=== PATIENT | male | born 1965 | race Caucasian/White ===

== ENCOUNTER 2017-07-19 09:13 | Inpatient (IN) | payer OTHER ==
[2017-07-19] MEDS ORDERED: SODIUM CHLORIDE 0.9% 1,000 ML IV STA (09:18)
--- NOTE | 2017-07-19 09:23 | ED ---
SOB HPI - General Stated Complaint: SOB Time Seen by Provider: 07/19/17 09:13 Source: patient, EMS, RN notes reviewed Mode of arrival: EMS - History of Present Illness Initial Comments: This is a 52-year-old male with a history of recently diagnosed colon cancer with metastases to the liver lungs apparently brain who came in by EMS today because of shortness of breath. He apparently had a bowel obstruction [place] was diagnosed with colon cancer in November of this year but per archival records clerk report did not do anything about it until recently. He was recently hospitalized at [facility] and was discharged 4 days ago. He complains of edema up to his lower abdomen. He has weeping to his legs shortness of breath decreased oral intake. He is reported to be severely jaundiced. MD Complaint: shortness of breath - Related Data Home Medications Medication Instructions Recorded Confirmed Dronabinol [Marinol] 2.5 mg PO BID 07/19/17 07/19/17 HYDROcodone/APAP 10-325MG [[place] 1 tab PO Q6H PRN 07/19/17 07/19/17 10-325] Levothyroxine Sodium [Synthroid] 175 mcg PO DAILY 07/19/17 07/19/17 Multivitamins, Thera [Multivitamin 1 tab PO DAILY 07/19/17 07/19/17 (formulary)] Phytonadione [Vitamin K] 5 mg PO BID 07/19/17 07/19/17 fentaNYL 25MCG/HR PATCH [Durages[place] 1 patch TRANSDERM Q72H 07/19/17 07/19/17 25MCG/HR] Allergies Allergy/AdvReac Type Severity Reaction Status Date / Time tigecycline Allergy Unknown Verified 07/19/17 09:52 Review of Systems ROS Statement: Those systems with pertinent positive or pertinent negative responses have been documented in the HPI. ROS Other: All systems not noted in ROS Statement are negative. General Exam - General Exam Comments Initial Comments: This is a well-developed asthenic appearing male who is jaundiced Limitations: physical limitation General appearance: alert, lethargic Head exam: Present: atraumatic, normocephalic, normal inspection Eye exam: Present: PERRL, EOMI, scleral icterus ENT exam: Present: mucous membranes dry Neck exam: Present: normal inspection. Absent: tenderness, meningismus, lymphadenopathy Respiratory exam: Present: decreased breath sounds Cardiovascular Exam: Present: regular rate, normal rhythm, normal heart sounds. Absent: systolic murmur, diastolic murmur, rubs, gallop, clicks GI/Abdominal exam: Present: other (Distended abdomen with a rate lower quadrant colonoscopy with protrusion of the ostomy into the bag.) Rectal exam: Present: deferred exam: Present: other Extremities exam: Present: pedal edema, other (Weeping of the lower extremities bilaterally.) Back exam: Present: full ROM. Absent: tenderness, CVA tenderness (R), CVA tenderness (L) Neurological exam: Present: alert, oriented X3, CN II-XII intact Psychiatric exam: Present: normal affect, normal mood Skin exam: Present: warm, other (Jaundiced) Course Vital Signs 07/19/17 07/19/17 07/19/17 09:17 10:18 11:00 Temperature 97 F L Pulse Rate 99 102 H 99 Respiratory 24 18 24 Rate Blood Pressure 115/58 112/58 109/59 O2 Sat by Pulse 99 100 100 Oximetry 07/19/17 07/19/17 12:00 13:00 Temperature Pulse Rate 95 93 Respiratory 20 18 Rate Blood Pressure 110/58 108/56 O2 Sat by Pulse 100 99 Oximetry Medical Decision Making - Medical Decision Making The patient will be admitted for evaluation by oncology did discuss case with Dr. Salgado. Additionally findings after my discussed with Dr. Salgado indicate possible pneumonia facial be treated for the same. - Lab Data Result diagrams: 07/19/17 09:36 07/19/17 09:36 Lab Results 07/19/17 07/19/17 07/19/17 Range/Units 09:36 09:36 09:36 WBC 14.7 H (3.8-10.6) k/uL RBC 3.03 L (4.30-5.90) m/uL Hgb 10.5 L (13.0-17.5) gm/dL Hct 33.7 L (39.0-53.0) % MCV 111.2 H (80.0-100.0) fL MCH 34.7 (25.0-35.0) pg MCHC 31.2 (31.0-37.0) g/dL RDW 22.5 H (11.5-15.5) % Plt Count 235 (150-450) k/uL Neutrophils % 89 % Lymphocytes % 4 % Monocytes % 4 % Eosinophils % 1 % Basophils % 1 % Neutrophils # 13.0 H (1.3-7.7) k/uL Lymphocytes # 0.5 L (1.0-4.8) k/uL Monocytes # 0.6 (0-1.0) k/uL Eosinophils # 0.1 (0-0.7) k/uL Basophils # 0.1 (0-0.2) k/uL Manual Slide Review Performed Toxic Granulation Present Hypochromasia Moderate Poikilocytosis (manual Present Anisocytosis Moderate Macrocytosis Marked PT (9.0-12.0) sec INR (<1.2) APTT (22.0-30.0) sec Sodium 141 (137-145) mmol/L Potassium 4.0 (3.5-5.1) mmol/L Chloride 113 H (98-107) mmol/L Carbon Dioxide 14 L (22-30) mmol/L Anion Gap 14 mmol/L BUN 24 H (9-20) mg/dL Creatinine 1.32 H (0.66-1.25) mg/dL Est GFR (MDRD) Af Amer >60 (>60 ml/min/1.73 sqM) Est GFR (MDRD) Non-Af 57 (>60 ml/min/1.73 sqM) Glucose 92 (74-99) mg/dL Calcium 8.5 (8.4-10.2) mg/dL Magnesium 2.2 (1.6-2.3) mg/dL Total Bilirubin 21.6 H* (0.2-1.3) mg/dL AST 470 H (17-59) U/L ALT 100 H (21-72) U/L Alkaline Phosphatase 597 H (38-126) U/L Total Creatine Kinase 64 (55-170) U/L CK-MB (CK-2) 0.7 (0.0-2.4) ng/mL CK-MB (CK-2) Rel Index 1.1 Troponin I <0.012 (0.000-0.034) ng/mL NT-Pro-B Natriuret Pep pg/mL Total Protein 6.5 (6.3-8.2) g/dL Albumin 2.8 L (3.5-5.0) g/dL 07/19/17 07/19/17 Range/Units 09:36 09:36 WBC (3.8-10.6) k/uL RBC (4.30-5.90) m/uL Hgb (13.0-17.5) gm/dL Hct (39.0-53.0) % MCV (80.0-100.0) fL MCH (25.0-35.0) pg MCHC (31.0-37.0) g/dL RDW (11.5-15.5) % Plt Count (150-450) k/uL Neutrophils % % Lymphocytes % % Monocytes % % Eosinophils % % Basophils % % Neutrophils # (1.3-7.7) k/uL Lymphocytes # (1.0-4.8) k/uL Monocytes # (0-1.0) k/uL Eosinophils # (0-0.7) k/uL Basophils # (0-0.2) k/uL Manual Slide Review Toxic Granulation Hypochromasia Poikilocytosis (manual Anisocytosis Macrocytosis PT 21.0 H (9.0-12.0) sec INR 2.2 H (<1.2) APTT 65.3 H (22.0-30.0) sec Sodium (137-145) mmol/L Potassium (3.5-5.1) mmol/L Chloride (98-107) mmol/L Carbon Dioxide (22-30) mmol/L Anion Gap mmol/L BUN (9-20) mg/dL Creatinine (0.66-1.25) mg/dL Est GFR (MDRD) Af Amer (>60 ml/min/1.73 sqM) Est GFR (MDRD) Non-Af (>60 ml/min/1.73 sqM) Glucose (74-99) mg/dL Calcium (8.4-10.2) mg/dL Magnesium (1.6-2.3) mg/dL Total Bilirubin (0.2-1.3) mg/dL AST (17-59) U/L ALT (21-72) U/L Alkaline Phosphatase (38-126) U/L Total Creatine Kinase (55-170) U/L CK-MB (CK-2) (0.0-2.4) ng/mL CK-MB (CK-2) Rel Index Troponin I (0.000-0.034) ng/mL NT-Pro-B Natriuret Pep 742 pg/mL Total Protein (6.3-8.2) g/dL Albumin (3.5-5.0) g/dL - EKG Data -: EKG Interpreted by Me (Sinus rhythm of 96 SD 160 QRS 90 QT since QTC of 388/ 490) EKG shows normal: sinus rhythm (Sinus rhythm rate 96 SD interval 160 QRS 90 QT since QTC of 388/490 right axis deviation pulmonary disease pattern prolonged QT nonspecific T-wave configuration) - Radiology Data Radiology results: report reviewed (Evidence a small right pleural effusion with right basilar airspace disease pneumonia is possible.), image reviewed Disposition Clinical Impression: Metastatic colon cancer to liver, Pneumonia Disposition: ADMITTED IP TO THIS [facility] Condition: Serious Referrals: None,Stated [REFERRING] - 1-2 days
[2017-07-19 10:02] LABS: Anisocytosis Moderate; Basophils # (A) 0.1 k/uL (0-0.2); Basophils % (A) 1 %; CH 33.8; CHCM 30.9; Eosinophils # (A) 0.1 k/uL (0-0.7); Eosinophils % (A) 1 %; HCT 33.7 % (39.0-53.0); HDW 3.04; HGB 10.5 gm/dL (13.0-17.5); Hypochromasia Moderate; Luc # (Auto) 0.34; Luc % (Auto) 2; Lymphocytes # (A) 0.5 k/uL (1.0-4.8); Lymphocytes % (A) 4 %; MCH 34.7 pg (25.0-35.0); MCHC 31.2 g/dL (31.0-37.0); MCV 111.2 fL (80.0-100.0); Macrocytosis Marked; Mean Platelet Volume 7.7; Monocytes # (A) 0.6 k/uL (0-1.0); Monocytes % (A) 4 %; Neutrophils % (A) 89 %; RBC 3.03 m/uL (4.30-5.90); RDW 22.5 % (11.5-15.5); WBC 14.7 k/uL (3.8-10.6); WBC (Perox) 15.34
[2017-07-19 10:08] LABS: ALT 100 U/L (21-72); AST 470 U/L (17-59); Alkaline Phosphatase 597 U/L (38-126); Anion Gap 14 mmol/L; Blood Urea Nitrogen 24 mg/dL (9-20); Calcium 8.5 mg/dL (8.4-10.2); Carbon Dioxide 14 mmol/L (22-30); Chloride 113 mmol/L (98-107); Glucose 92 mg/dL (74-99); Magnesium 2.2 mg/dL (1.6-2.3); Non-African American GFR(MDRD) 57 (>60 ml/min/1.73 sqM); Sodium 141 mmol/L (137-145); Total Protein 6.5 g/dL (6.3-8.2)
[2017-07-19] MEDS ORDERED: HYDROmorphone 1 MG/ML 1 ML SYRINGE IVP STA (10:08)
[2017-07-19 10:10] LABS: Total Bilirubin 21.6 mg/dL (0.2-1.3)
--- NOTE | 2017-07-19 10:19 | XR ---
EXAMINATION TYPE: XR chest 2V DATE OF EXAM: 07/19/2017 COMPARISON: NONE HISTORY: Shortness of breath with history of colon cancer, liver cancer and jaundice. TECHNIQUE: Frontal and lateral views of the chest are obtained. FINDINGS: Left-sided Mediport is seen with its distal tip in the superior vena cava/regional junctio n. Mild cardiomegaly is demonstrated. There are is a small to moderate right pleural effusion with as sociated right basilar airspace disease. No left pleural effusion is noted. Retrocardiac density may relate to atelectasis or a small hernia. IMPRESSION: 1. Small moderate right layering pleural effusion with right basilar airspace disease. This may repre sent atelectasis and/or pneumonia in the appropriate clinical setting. 2. Retrocardiac density that may relate to atelectasis. No left pleural effusion.
[2017-07-19 10:39] LABS: Creatine Kinase 64 U/L (55-170)
[2017-07-19 10:46] LABS: INR 2.2 (<1.2)
[2017-07-19 10:50] LABS: Creatine Kinase MB 0.7 ng/mL (0.0-2.4); Troponin I <0.012 ng/mL (0.000-0.034)
[2017-07-19 10:55] LABS: Manual Review Performed; Toxic Granulation Present
[2017-07-19 11:05] LABS: Partial Thromboplastin Time 65.3 sec (22.0-30.0)
[2017-07-19] MEDS ORDERED: PIPERACILLIN-TAZOBACTAM 3.375 GM in DEXTROSE/WATER 1 50ML.BAG IVPB STA (13:30)
[2017-07-19] MEDS ORDERED: ONDANSETRON 4 MG/2 ML VIAL IVP PRN (13:32)
[2017-07-19] MEDS ORDERED: NALOXONE 0.4 MG/ML 1 ML VIAL IV PRN (13:32)
[2017-07-19] MEDS ORDERED: IPRATROPIUM-ALBUTEROL 3 ML NEB INHALATION STA (13:37)
[2017-07-19] MEDS: SODIUM CHLORIDE 0.9% 1,000 ML IV SCH ×2 (13:44→21:09)
[2017-07-19 15:35] VITALS: BMI 17.8
[2017-07-19] MEDS ORDERED: IPRATROPIUM-ALBUTEROL 3 ML NEB INHALATION SCH (16:00)
[2017-07-19] MEDS ORDERED: IPRATROPIUM-ALBUTEROL 3 ML NEB INHALATION PRN (16:35)
[2017-07-19] MEDS: DRONABINOL 2.5 MG CAP PO SCH (17:50)
[2017-07-19] MEDS: HYDROmorphone 1 MG/ML 1 ML SYRINGE IV PRN ×2 (18:05→21:33)
[2017-07-19] MEDS: PHYTONADIONE ORAL 5 MG/5 ML ORAL.SYRG PO SCH (21:09)
[2017-07-19] MEDS: HYDROCORTISONE 1% CREAM 454 GM JAR TOPICAL SCH (21:35)
[2017-07-19 23:46] VITALS: RESP 16
[2017-07-20] MEDS: PIPERACILLIN-TAZOBACTAM 3.375 GM in DEXTROSE/WATER 1 50ML.BAG IVPB SCH ×3 (00:24→17:27)
[2017-07-20] MEDS: SODIUM CHLORIDE 0.9% 1,000 ML IV SCH ×3 (05:17→22:40)
[2017-07-20] MEDS: HYDROmorphone 1 MG/ML 1 ML SYRINGE IV PRN ×4 (05:18→20:04)
[2017-07-20 05:54] LABS: Anisocytosis Moderate; Basophils # (A) 0.1 k/uL (0-0.2); Basophils % (A) 0 %; CH 32.6; CHCM 30.5; Eosinophils # (A) 0.2 k/uL (0-0.7); Eosinophils % (A) 1 %; HCT 33.2 % (39.0-53.0); HDW 2.94; HGB 10.5 gm/dL (13.0-17.5); Hypochromasia Moderate; Luc # (Auto) 0.44; Luc % (Auto) 3; Lymphocytes # (A) 0.7 k/uL (1.0-4.8); Lymphocytes % (A) 4 %; MCH 34.3 pg (25.0-35.0); MCHC 31.6 g/dL (31.0-37.0); MCV 108.6 fL (80.0-100.0); Macrocytosis Marked; Mean Platelet Volume 7.2; Monocytes # (A) 0.6 k/uL (0-1.0); Monocytes % (A) 4 %; Neutrophils # (A) 13.2 k/uL (1.3-7.7); Neutrophils % (A) 87 %; RBC 3.05 m/uL (4.30-5.90); WBC 15.2 k/uL (3.8-10.6)
[2017-07-20 06:04] LABS: Calcium 8.4 mg/dL (8.4-10.2); Partial Thromboplastin Time 41.9 sec (22.0-30.0); Potassium 4.2 mmol/L (3.5-5.1)
[2017-07-20 06:08] LABS: Total Bilirubin 21.4 mg/dL (0.2-1.3)
[2017-07-20 06:11] LABS: INR 2.5 (<1.2); Prothrombin Time 23.7 sec (9.0-12.0)
[2017-07-20] MEDS: LEVOTHYROXINE 100 MCG TAB PO SCH (06:11)
[2017-07-20] MEDS: LEVOTHYROXINE 75 MCG TAB PO SCH (06:12)
[2017-07-20] MEDS ORDERED: PANTOPRAZOLE 40 MG/10 ML VIAL IV SCH (09:00)
[2017-07-20] MEDS ORDERED: diphenhydrAMINE 50 MG/ML 1 ML VIAL IVP PRN (09:17)
[2017-07-20] MEDS: DRONABINOL 2.5 MG CAP PO SCH ×2 (09:27→17:27)
[2017-07-20] MEDS: PHYTONADIONE ORAL 5 MG/5 ML ORAL.SYRG PO SCH ×2 (09:29→22:44)
[2017-07-20] MEDS: HYDROCORTISONE 1% CREAM 454 GM JAR TOPICAL SCH ×2 (09:30→20:06)
--- NOTE | 2017-07-20 13:00 | HP ---
CHIEF COMPLAINT: 52-year-old white male with colon cancer, metastases to the liver and lungs with significant jaundice, malnutrition, abdominal bloating, worsening over the past few days at which time he was sent home from [facility] four days ago with worsening pain, increased in legs, shortness of breath, leg swelling, ( ) and worsening jaundice. No chemo would be given down at [place] until the jaundice went away, which it never did. Home medicines: 1. Fentanyl 25 mcg patch. 2. Synthroid 175. 3. Marinol 2.5 b.i.d. 4. [place] 10 q6h. ALLERGIES: TIGECYCLINE. REVIEW OF SYSTEMS: 14 point review of systems negative except for as mentioned in HPI. PHYSICAL EXAMINATION: Well developed, aesthetic appearing male with jaundice. Cardiovascular: S1, S2. Lungs clear. GI: Distended abdomen. He has an ostomy. : No suprapubic tenderness. EXTREMITIES: No cyanosis or clubbing. He has 2 to 3+ pedal edema bilaterally. BACK: He has lordotic kyphotic spine. CVA tenderness right and left. Abdomen is distended due to obesity and positive fluid wave. Gravid abdomen like six months. NEUROLOGICAL : Alert and oriented times three. Cranial nerves 2 thru 12 intact. Psych: Slow affect and flat mood . SKIN: Jaundice. LABORATORY DATA: Reviewed. ASSESSMENT AND PLAN: 1. End stage colon cancer, liver metastases. 2. Severe protein calorie malnutrition. 3. TPN will be started. 4. Possible pneumonia, on broad spectrum antibiotics. 5. Pulmonary consult is pending. 6. Right pleural effusion. 7. Right air space disease for pneumonia. 8. Continue broad spectrum antibiotics. 9. Oncology consult as well as pulmonology. MTDD
[2017-07-20] MEDS: MULTIVITAMINS, THERA 1 EACH TAB PO SCH (13:33)
[2017-07-20] MEDS ORDERED: ZOLPIDEM 5 MG TAB PO PRN (14:43)
[2017-07-20] MEDS: ONDANSETRON 4 MG/2 ML VIAL IVP PRN ×2 (15:59→22:53)
--- NOTE | 2017-07-20 18:35 | P.CONS ---
History of Present Illness - Reason for Consult Consult date: 07/20/17 metastatic colon cancer Requesting physician: Richard Oliva - Chief Complaint SOB - History of Present Illness Mr. Guo is a very pleasant 52 year old male who was diagnosed with metastatic colon cancer in Oct 2016. He thinks he had several surgeries and then was in rehab, he thinks he was in the hospital for a total of 6 weeks. He does not remember meeting an Oncologist, he does not remember discussing any treatment, he knows he has not had any treatment. He recalls being told that there was "no hope" and that he should just stay comfortable until he dies. He denies having home care of hospice services at home. He has c/o puritis, orthopnea, indigestion, bitter taste with belching, mild nausea. Denies fevers, sweats, vomiting, his abd has been distended, maybe a little more , his ostomy has been herniated, denies any acute changes in output, no blood from the ostomy, no other bleeding to report, he feels the swelling in his legs is a little better, he is denying pain. Review of Systems Pt gave history to the best of his ability, he had documents from [facility], he was able to communicate how he felt physically clearly. 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 History of Any Multi-Drug Resistant Organisms: None Reported Past Surgical History: Bowel Resection Additional Past Surgical History / Comment(s): Bowel resection with colostomy, mediport. Past Anesthesia/Blood Transfusion Reactions: No Reported Reaction Past Psychological History: Depression Additional Psychological History / Comment(s): Pt has a brother who resides with him. He uses a walker to ambulate. He was discharged from [facility] 4 days ago and was to have home care established. Smoking Status: Never smoker Past Alcohol Use History: None Reported Past Drug Use History: Marijuana - Past Family History Father Family Medical History: CVA/TIA Additional Family Medical History / Comment(s): Father is living and has had a "mild stroke." Mother Family Medical History: Cancer Additional Family Medical History / Comment(s): Mother has had breast cancer. Medications and Allergies Home Medications Medication Instructions Recorded Confirmed Type Dronabinol [Marinol] 2.5 mg PO BID 07/19/17 07/19/17 History HYDROcodone/APAP 10-325MG [[place] 1 tab PO Q6H PRN 07/19/17 07/19/17 History 10-325] Levothyroxine Sodium [Synthroid] 175 mcg PO DAILY 07/19/17 07/19/17 History Multivitamins, Thera [Multivitamin 1 tab PO DAILY 07/19/17 07/19/17 History (formulary)] Phytonadione [Vitamin K] 5 mg PO BID 07/19/17 07/19/17 History fentaNYL 25MCG/HR PATCH [[place] 1 patch TRANSDERM Q72H 07/19/17 07/19/17 History 25MCG/HR] Allergies Allergy/AdvReac Type Severity Reaction Status Date / Time tigecycline Allergy Unknown Verified 07/19/17 09:52 Physical Exam Vitals: Vital Signs Temp Pulse Resp BP BP Pulse Ox 07/20/17 14:40 97.7 F 102 H 16 99/52 94 L 07/20/17 07:00 97.4 F L 103 H 16 98/49 98 07/20/17 00:00 89 16 07/19/17 23:00 97.3 F L 102 H 16 94/60 96 07/19/17 21:29 96 18 101/52 98 07/19/17 19:35 97 Intake and Output 07/20/17 07/20/17 07/20/17 06:59 14:59 22:59 Intake Total 200 Output Total 250 250 Balance -50 -250 Intake: Oral 200 Output: Urine 250 Stool 250 Other: Voiding Method Urinal Urinal Urinal # Voids 1 Weight 58.06 kg Patient Weight 07/21/17 06:59 Weight 58.06 kg - Constitutional General appearance: cooperative, thin - EENT Eyes: scleral icterus ENT: normal oropharynx - Neck Neck: no lymphadenopathy - Respiratory Respiratory: bilateral: diminished, other (shallow respirations secondary to abd distension) - Cardiovascular Rhythm: regular Heart sounds: normal: S1, S2 Abnormal Heart Sounds: no systolic murmur, no diastolic murmur, no rub, no S3 Gallop, no S4 Gallop, no click, no other leg Peripheral Edema: bilateral: 3+, Pitting - Gastrointestinal abd is grossly distended, venous congestion/prominence noted. RLQ ostomy is herniated but stoma is pink, pale brown semi solid stool noted, no blood. Hard abd, hepatomegaly, hard to find border as ostomy in RLQ, liver is hard and nodular to palpation. General gastrointestinal: distended, normal bowel sounds, tenderness - Integumentary Integumentary: jaundiced - Neurologic Neurologic: CNII-XII intact - Musculoskeletal Musculoskeletal: generalized weakness - Psychiatric pt knows he is "foggy" and not remembering all details Psychiatric: A&O x's 3, appropriate affect Results CBC & Chem 7: 07/20/17 05:30 07/20/17 05:30 Labs: Abnormal Lab Results - Last 24 Hours (Table) 07/20/17 07/20/17 07/20/17 Range/Units 05:30 05:30 05:30 WBC 15.2 H (3.8-10.6) k/uL RBC 3.05 L (4.30-5.90) m/uL Hgb 10.5 L (13.0-17.5) gm/dL Hct 33.2 L (39.0-53.0) % MCV 108.6 H (80.0-100.0) fL RDW 22.0 H (11.5-15.5) % Neutrophils # 13.2 H (1.3-7.7) k/uL Lymphocytes # 0.7 L (1.0-4.8) k/uL PT 23.7 H (9.0-12.0) sec INR 2.5 H (<1.2) APTT 41.9 H (22.0-30.0) sec Chloride 113 H (98-107) mmol/L Carbon Dioxide 16 L (22-30) mmol/L BUN 30 H (9-20) mg/dL Creatinine 1.72 H (0.66-1.25) mg/dL Glucose 72 L (74-99) mg/dL Total Bilirubin 21.4 H* (0.2-1.3) mg/dL AST 410 H (17-59) U/L ALT 99 H (21-72) U/L Alkaline Phosphatase 582 H (38-126) U/L Total Protein 6.0 L (6.3-8.2) g/dL Albumin 2.6 L (3.5-5.0) g/dL Chest x-ray: report reviewed Assessment and Plan (1) Metastatic colon cancer to liver Narrative/Plan: When I asked pt what he would like to do he stated that he was under the impression that he is "going home to ". I explained to him that we need to discuss what he wants so he stated he would like his brother and best friend in the room to help him with understanding every thing that is going on and he will make decisions. Family meeting sched for 9am. Status: Acute (2) Jaundice Narrative/Plan: Due to malignancy. Spoke with pharmacy for appropriate med, benadryl ordered for puritis from jaundice. Status: Chronic (3) Nausea Narrative/Plan: Secondary to mets to liver. Antiemetic ordered more frequently Status: Acute (4) Reflux gastritis Narrative/Plan: PPI frequency increased to BID for symptoms of GERD Status: Acute (5) Coagulopathy Narrative/Plan: Secondary to liver mets, pt is on 5m vit K BID with a therapeutic INR, no anticoagluation necessary, pt is auto-anticoagulated. Monitor INR, cont vit K Status: Acute
[2017-07-20] MEDS: PANTOPRAZOLE 40 MG/10 ML VIAL IV SCH (20:04)
[2017-07-21] MEDS: PIPERACILLIN-TAZOBACTAM 3.375 GM in DEXTROSE/WATER 1 50ML.BAG IVPB SCH ×3 (00:12→15:58)
[2017-07-21] MEDS: SODIUM CHLORIDE 0.9% 1,000 ML IV SCH ×2 (05:57→15:58)
[2017-07-21] MEDS: LEVOTHYROXINE 75 MCG TAB PO SCH (06:14)
[2017-07-21] MEDS: LEVOTHYROXINE 100 MCG TAB PO SCH (06:14)
[2017-07-21] MEDS: ONDANSETRON 4 MG/2 ML VIAL IVP PRN ×2 (06:19→19:25)
[2017-07-21] MEDS: HYDROmorphone 1 MG/ML 1 ML SYRINGE IV PRN ×4 (06:19→19:26)
[2017-07-21 06:41] LABS: Anisocytosis Moderate; Basophils # (A) 0.1 k/uL (0-0.2); Basophils % (A) 1 %; CH 33.5; CHCM 31.2; Eosinophils # (A) 0.1 k/uL (0-0.7); Eosinophils % (A) 1 %; HDW 3.18; HGB 9.8 gm/dL (13.0-17.5); Hypochromasia Moderate; Luc # (Auto) 0.31; Luc % (Auto) 3; Lymphocytes # (A) 0.5 k/uL (1.0-4.8); Lymphocytes % (A) 4 %; MCH 34.6 pg (25.0-35.0); MCHC 31.7 g/dL (31.0-37.0); MCV 109.2 fL (80.0-100.0); Macrocytosis Marked; Mean Platelet Volume 8.3; Monocytes # (A) 0.7 k/uL (0-1.0); Monocytes % (A) 5 %; Neutrophils # (A) 10.8 k/uL (1.3-7.7); Neutrophils % (A) 87 %; RBC 2.84 m/uL (4.30-5.90); RDW 22.4 % (11.5-15.5); WBC 12.4 k/uL (3.8-10.6); WBC (Perox) 13.02
[2017-07-21 06:51] LABS: Calcium 8.2 mg/dL (8.4-10.2); Potassium 4.6 mmol/L (3.5-5.1); Total Protein 5.9 g/dL (6.3-8.2)
[2017-07-21 06:56] LABS: Total Bilirubin 21.4 mg/dL (0.2-1.3)
[2017-07-21 07:07] LABS: INR 1.8 (<1.2); Partial Thromboplastin Time 39.8 sec (22.0-30.0)
[2017-07-21 07:16] LABS: Manual Review Performed; Polychromasia Present
[2017-07-21] MEDS: DRONABINOL 2.5 MG CAP PO SCH ×2 (08:25→17:23)
[2017-07-21] MEDS: PANTOPRAZOLE 40 MG/10 ML VIAL IV SCH (08:26)
[2017-07-21] MEDS: HYDROCORTISONE 1% CREAM 454 GM JAR TOPICAL SCH ×2 (08:27→19:33)
[2017-07-21] MEDS: PHYTONADIONE ORAL 5 MG/5 ML ORAL.SYRG PO SCH (09:28)
--- NOTE | 2017-07-21 09:51 | CONS ---
CONSULTATION Date of Consultation: Edin Guo is a 52-year-old male with a known history of colon cancer which is metastatic to the liver and the lung. He comes in with weakness and shortness of breath. He denies any fever, chills or rigors. He was diagnosed with colon cancer in November of this year. Subsequently underwent surgery with partial removal of his bowel. He has an ostomy since his surgery. He was undergoing chemotherapy. He had been at [facility]. He is unclear regarding his recent history but apparently had thoracenteses done both on the left and the right. The records are not available to me at this time. FAMILY HISTORY: Noncontributory. SOCIAL HISTORY: Patient does not smoke at this time. He does not drink alcohol excessively. He is not exposed to any chemicals at this time. MEDICATIONS: Prior to admission were [place], Marinol, Synthroid, fentanyl. ALLERGIES: TIGECYCLINE. PHYSICAL EXAMINATION: Blood pressure is 99/52, respiratory rate of 16, pulse rate of 102, temperature 97.7, O2 sat on room air is 94%. HEENT reveals deep icterus, no jugular venous distention. Abdomen is distended with an ostomy in place. Chest reveals decreased breath sounds in the right base with dullness to percussion. Left side is relatively clear. Cardiovascular system with an S1, S2. Abdomen was again distended with ostomy in place in the right mid abdomen. There is 1+ pedal edema. White count is 15.2, hemoglobin of 10.5, PT, INR of 2.5, sodium 142, potassium 4.2, chloride 113, bicarb 16, albumin is 2.6. Chest x-ray was reviewed which shows atelectatic change and possible effusion in the right hemithorax. IMPRESSION: 1. Metastatic colon cancer with obstructive jaundice and liver metastatic disease. 2. Right-sided pleural effusion which may be contributing to his shortness of breath. 3. Hypoalbuminemia consistent with protein calorie malnutrition. 4. Deep icterus with bilirubin in the 20s which is most likely secondary to colon cancer with metastatic disease and possibly obstructive jaundice. 5. Metabolic acidosis. 6. Coagulopathy in part due to his liver disease. At this point in time, the patient's prognosis is extremely poor. For his comfort would see if Interventional Radiology can do a thoracentesis under ultrasound guidance on the right. He is not to be considered for CPR or intubation. It is unclear whether he has an infectious process going on. But for the time being would continue Zosyn. Depending on how he does, we shall make further changes to his care. I would like to thank you for allowing me the privilege of participating in his care. MMODL / IJN: [id number] /
--- NOTE | 2017-07-21 10:22 | US ---
EXAMINATION TYPE: US chest DATE OF EXAM: 07/21/2017 COMPARISON: CXR CLINICAL HISTORY: evaluate pleural effusion. Pleural effusion EXAM MEASUREMENTS: Right Pleural Effusion fluid pocket: 8.7 cm Left Pleural Effusion fluid pocket: 6.8 cm IMPRESSIONS: Bilateral partially visualized pleural effusions.
--- NOTE | 2017-07-21 10:32 | US ---
EXAMINATION TYPE: US liver DATE OF EXAM: 07/21/2017 COMPARISON: NONE CLINICAL HISTORY: Jaundice, assess for biliary obstruction. Jaundice, pt has colon CA EXAM MEASUREMENTS: Liver Length: 18.8 cm Gallbladder Wall: 0.6 cm CBD: 1.1 cm Right Kidney: 11.3 x 4.0 x 3.7 cm Pancreas: Obscured by bowel gas Liver: Enlarged, heterogeneous with innumerable lesions scattered throughout Gallbladder: Sludge with thickened wall Evidence for sonographic Horn's sign: Yes CBD: Biliary stent visualized with echogenic debris vs. mass filling CBD Right Kidney: wnl Small amount of ascites present IMPRESSION: 1. Moderate degree of layering biliary sludge within the gallbladder lumen and filling defect within the common bile duct proximal to the stent and surrounding the stent. Resultant gallbladder wall thic kening and sonographic Horn's sign are present corresponding to acute cholecystitis. 2. Innumerable hepatic lesions, most compatible with hepatic metastasis in this patient with a histor y of colon carcinoma. 3. Partially visualized small volume perihepatic ascites. Findings were also relayed to the patients nurse at 1022am on 07-21-17 as a message was left with Dr. Longoria's office and Dr. Longoria could not be reached. A Red message has been communicated to Luis Felipe Longoria MD~[id number] via the [employer] Critical Result system on 07/21/2017 10:19 AM, Message ID [id number].
--- NOTE | 2017-07-21 11:09 | P.PN ---
Subjective This is a 52-year-old male patient with a known history of colon cancer which is metastatic to the liver and lung. He came into the hospital with weakness and shortness of breath. He was diagnosed with colon cancer in November of this year and subsequently underwent surgery with partial removal of his bowel. He has a colostomy present at this time. He was undergoing chemotherapy in the outpatient setting and had been at [facility]. It is unclear regarding his recently had surgery but apparently he had a thoracentesis done on both the left and the right lung. Those records are not available at this time. Upon examination the patient's resting up in bed on room air he denies any cough or congestion at this time. He is afebrile, no further complaints no overnight events. The patient makes it known that he is requesting hospice services and no longer wants to undergo treatment at this time. Family is at bedside during this discussion as well. Objective - Vital Signs Vital signs: Vital Signs Temp 98 F 07/21/17 07:00 Pulse 96 07/21/17 07:00 Resp 16 07/21/17 07:00 BP 97/55 07/21/17 07:00 Pulse Ox 96 07/21/17 07:00 Intake & Output 07/20/17 07/21/17 07/21/17 18:59 06:59 18:59 Intake Total 1300 Output Total 250 700 Balance -250 600 Weight 58.06 kg Intake: Intake, IV Titration 700 Amount Piperacillin-Tazobactam 3 50 .375 gm In Dextrose/Water 1 50ml.bag @ 12.5 mls/hr IVPB Q8HR [facility] Rx#: [id number] Sodium Chloride 0.9% 1, 650 000 ml @ 125 mls/hr IV . Q8H [facility] Rx#:[id number] Oral 600 Output: Urine 700 Stool 250 Other: Voiding Method Urinal Urinal Urinal # Voids 2 - Exam GENERAL EXAM: Alert, jaundice comfortable in no apparent distress. HEAD: Normocephalic. EYES: No icterus Normal reaction of pupils, equal size. NOSE: Clear with pink turbinates. THROAT: No erythema or exudates. NECK: No masses, no JVD. CHEST: No chest wall deformity. LUNGS: Decreased air entry throughout with some right-sided dullness. Bases diminished. CVS: S1 and S2 normal with no audible mumurs, regular rhythm. ABDOMEN: Abdomen is distended with colostomy in place showing herniation. EXTREMITIES: +3 edema noted, pedal pulses palpable. SKIN: No rashes CENTRAL NERVOUS SYSTEM: No focal deficits, tone is normal in all 4 extremities. - Labs CBC & Chem 7: 07/21/17 05:40 07/21/17 05:40 Labs: Abnormal Lab Results - Last 24 Hours (Table) 07/21/17 07/21/17 07/21/17 Range/Units 05:40 05:40 05:40 WBC 12.4 H (3.8-10.6) k/uL RBC 2.84 L (4.30-5.90) m/uL Hgb 9.8 L (13.0-17.5) gm/dL Hct 31.0 L (39.0-53.0) % MCV 109.2 H (80.0-100.0) fL RDW 22.4 H (11.5-15.5) % Neutrophils # 10.8 H (1.3-7.7) k/uL Lymphocytes # 0.5 L (1.0-4.8) k/uL PT 17.0 H (9.0-12.0) sec INR 1.8 H (<1.2) APTT 39.8 H (22.0-30.0) sec Chloride 111 H (98-107) mmol/L Carbon Dioxide 13 L (22-30) mmol/L BUN 40 H (9-20) mg/dL Creatinine 2.80 H (0.66-1.25) mg/dL Calcium 8.2 L (8.4-10.2) mg/dL Total Bilirubin 21.4 H* (0.2-1.3) mg/dL AST 447 H (17-59) U/L ALT 104 H (21-72) U/L Alkaline Phosphatase 524 H (38-126) U/L Total Protein 5.9 L (6.3-8.2) g/dL Albumin 2.5 L (3.5-5.0) g/dL Assessment and Plan Plan: Assessment Metastatic colon cancer with obstructive jaundice and liver metastatic disease Right-sided pleural effusion Hypoalbuminemia with severe protein calorie malnourishment Deep icterus with bilirubin in the 20s Metabolic acidosis Coagulopathy Plan Prognosis is highly guarded and the patient would like to be considered for hospice care. Primary services has been updated and we will defer this to them. We agree with hospice due to the poor prognosis. Medications have been reviewed and will be continued as ordered. Continue with pulmonary hygiene, coughing and deep breathing exercises, and supportive care. Supplemental oxygen to maintain oxygen saturations of 92% or better. Continue nebulizer treatments. GI and DVT prophylaxis. We will continue to monitor labs/results and adjust treatment as necessary. Further recommendations pending. I performed an examination of the patient and discussed their management with the nurse practitioner. I have reviewed the nurse practitioner's note and agree with the documented findings and plan of care. We are covering for Dr. DEVORAH Zambrano today
--- NOTE | 2017-07-21 12:58 | P.GSCN ---
History of Present Illness Consult date: 07/21/17 Reason for Consult: Hyperbilirubinemia, metastatic colon cancer History of present illness: This a 52-year-old male who was diagnosed with metastatic colon cancer in 2015. The patient has had elevated bilirubin for several weeks. He's had previous colon surgery. He also has a prolapse of his colostomy. Past Medical History Past Medical History: Cancer, Deep Vein Thrombosis (DVT), Pulmonary Embolus (PE) Additional Past Medical History / Comment(s): Adenocarcinoma colon with resection/colostomy and mets liver, lung and brain-diagnosed at [facility] October 2016, obstructive jaundice, hypothyroid, October 2016 PE and LE DVT, green field filter placed @ [facility] History of Any Multi-Drug Resistant Organisms: None Reported Past Surgical History: Bowel Resection Additional Past Surgical History / Comment(s): Bowel resection with colostomy, mediport. Past Anesthesia/Blood Transfusion Reactions: No Reported Reaction Past Psychological History: Depression Additional Psychological History / Comment(s): Pt has a brother who resides with him. He uses a walker to ambulate. He was discharged from [facility] 4 days ago and was to have home care established. Smoking Status: Never smoker Past Alcohol Use History: None Reported Past Drug Use History: Marijuana - Past Family History Father Family Medical History: CVA/TIA Additional Family Medical History / Comment(s): Father is living and has had a "mild stroke." Mother Family Medical History: Cancer Additional Family Medical History / Comment(s): Mother has had breast cancer. Medications and Allergies Home Medications Medication Instructions Recorded Confirmed Type Dronabinol [Marinol] 2.5 mg PO BID 07/19/17 07/19/17 History HYDROcodone/APAP 10-325MG [[place] 1 tab PO Q6H PRN 07/19/17 07/19/17 History 10-325] Levothyroxine Sodium [Synthroid] 175 mcg PO DAILY 07/19/17 07/19/17 History Multivitamins, Thera [Multivitamin 1 tab PO DAILY 07/19/17 07/19/17 History (formulary)] Phytonadione [Vitamin K] 5 mg PO BID 07/19/17 07/19/17 History fentaNYL 25MCG/HR PATCH [Duragesic 1 patch TRANSDERM Q72H 07/19/17 07/19/17 History 25MCG/HR] Allergies Allergy/AdvReac Type Severity Reaction Status Date / Time tigecycline Allergy Unknown Verified 07/19/17 09:52 Surgical - Exam Vital Signs Temp Pulse Resp BP Pulse Ox 97 F L 99 24 115/58 99 07/19/17 09:17 07/19/17 09:17 07/19/17 09:17 07/19/17 09:17 07/19/17 09:17 Obvious jaundice - General cachectic, chronically ill - Eyes icteric - ENT normal pinna - Neck no masses - Respiratory normal expansion - Cardiovascular Rhythm: regular - Abdomen Abdomen is distended. There is prolapse of the colostomy. The colostomy is viable. Results - Labs 07/21/17 05:40 07/21/17 05:40 Abnormal Lab Results - Last 24 Hours (Table) 07/21/17 07/21/17 07/21/17 Range/Units 05:40 05:40 05:40 WBC 12.4 H (3.8-10.6) k/uL RBC 2.84 L (4.30-5.90) m/uL Hgb 9.8 L (13.0-17.5) gm/dL Hct 31.0 L (39.0-53.0) % MCV 109.2 H (80.0-100.0) fL RDW 22.4 H (11.5-15.5) % Neutrophils # 10.8 H (1.3-7.7) k/uL Lymphocytes # 0.5 L (1.0-4.8) k/uL PT 17.0 H (9.0-12.0) sec INR 1.8 H (<1.2) APTT 39.8 H (22.0-30.0) sec Chloride 111 H (98-107) mmol/L Carbon Dioxide 13 L (22-30) mmol/L BUN 40 H (9-20) mg/dL Creatinine 2.80 H (0.66-1.25) mg/dL Calcium 8.2 L (8.4-10.2) mg/dL Total Bilirubin 21.4 H* (0.2-1.3) mg/dL AST 447 H (17-59) U/L ALT 104 H (21-72) U/L Alkaline Phosphatase 524 H (38-126) U/L Total Protein 5.9 L (6.3-8.2) g/dL Albumin 2.5 L (3.5-5.0) g/dL Diabetes panel 07/21/17 Range/Units 05:40 Sodium 141 (137-145) mmol/L Potassium 4.6 (3.5-5.1) mmol/L Chloride 111 H (98-107) mmol/L Carbon Dioxide 13 L (22-30) mmol/L BUN 40 H (9-20) mg/dL Creatinine 2.80 H (0.66-1.25) mg/dL Glucose 74 (74-99) mg/dL Calcium 8.2 L (8.4-10.2) mg/dL AST 447 H (17-59) U/L ALT 104 H (21-72) U/L Alkaline Phosphatase 524 H (38-126) U/L Total Protein 5.9 L (6.3-8.2) g/dL Albumin 2.5 L (3.5-5.0) g/dL Calcium panel 07/21/17 Range/Units 05:40 Calcium 8.2 L (8.4-10.2) mg/dL Albumin 2.5 L (3.5-5.0) g/dL Pituitary panel 07/21/17 Range/Units 05:40 Sodium 141 (137-145) mmol/L Potassium 4.6 (3.5-5.1) mmol/L Chloride 111 H (98-107) mmol/L Carbon Dioxide 13 L (22-30) mmol/L BUN 40 H (9-20) mg/dL Creatinine 2.80 H (0.66-1.25) mg/dL Glucose 74 (74-99) mg/dL Calcium 8.2 L (8.4-10.2) mg/dL Adrenal panel 07/21/17 Range/Units 05:40 Sodium 141 (137-145) mmol/L Potassium 4.6 (3.5-5.1) mmol/L Chloride 111 H (98-107) mmol/L Carbon Dioxide 13 L (22-30) mmol/L BUN 40 H (9-20) mg/dL Creatinine 2.80 H (0.66-1.25) mg/dL Glucose 74 (74-99) mg/dL Calcium 8.2 L (8.4-10.2) mg/dL Total Bilirubin 21.4 H* (0.2-1.3) mg/dL AST 447 H (17-59) U/L ALT 104 H (21-72) U/L Alkaline Phosphatase 524 H (38-126) U/L Total Protein 5.9 L (6.3-8.2) g/dL Albumin 2.5 L (3.5-5.0) g/dL Assessment and Plan Plan: End-stage metastatic colon cancer. It is unclear the patient is entering hospice. No surgical intervention is planned.
[2017-07-21] MEDS: MULTIVITAMINS, THERA 1 EACH TAB PO SCH (13:07)
--- NOTE | 2017-07-21 13:53 | CONS ---
CONSULTATION Date of Consultation: DATE OF CONSULTATION: 07/20/2017 REASON FOR CONSULTATION: Colon adenocarcinoma metastatic to the liver. HISTORY OF PRESENT ILLNESS: This 52-year-old, male patient with a diagnosis of a colon adenocarcinoma with obstruction in early 2016. Patient was managed at [facility]. The patient had metastasis involving liver at that time, and was treated with systemic chemotherapy. Over the past few months, patient's overall performance status has declined and was subsequently admitted to progression of jaundice. Patient's chemotherapy has been placed on hold at [facility] due to persistent jaundice and declining performance status. PAST MEDICAL HISTORY: Past medical history is as per HPI. ALLERGIES: Tertacycline. MEDICATIONS: Zolpidem, diphenhydramine, pantoprazole, Zofran, hydrocortisone, albuterol, levothyroxine, fentanyl, multivitamins, dronabinol. PHYSICAL EXAM: A well-developed, well-nourished, thin middle-aged gentleman in no acute distress. Performance status is fair to poor. VITAL SIGNS: Temperature 97.4, pulse 103, blood pressure 98/49, O2 saturation 98%. HEENT exam shows significant jaundice involving the skin and sclerae. Oral cavity shows mucosal lesions. NECK: Supple. No adenopathy. Chest is clear. No audible wheezes. Heart is regular rate and rhythm. Abdomen is protuberant consistent with known organomegaly and ascites. There is no appreciable tenderness. Extremities shows bilateral edema. NEUROLOGIC EXAM: He is alert and oriented x3. Gait not assessed. LABORATORY DATA: CBC from 07/20/2017 WBC 15.2, hemoglobin 10.5, hematocrit 33.3 and platelet count is 303,000. Serum chemistries from 07/20/2017 showed a sodium of 142, potassium 4.2 , BUN 30, creatinine 1.7. Calcium 8.4. Glucose 72. Liver enzymes elevated, AST 410, ALT 99, and alkaline phosphatase 532. Total protein low at 6.0 and albumin low at 2.6. ASSESSMENT: A 52-year-old, male patient with colon carcinoma metastatic to the liver and lungs. The patient diagnosed in early 2017 treated with systemic chemotherapy. Patient overall performance status is declining. Patient clinical status is poor and is not an optimal candidate for planned chemotherapy which is scheduled at [facility]. RECOMMENDATIONS: Discussed with the patient regarding the current diagnosis and management plan. I agree with best supportive care. I agree with supportive options particularly as it relates to his jaundice. The patient has difficulty caring for himself and would need rehabilitation services as well as an inpatient. The patient's performance status continues to decline then palliative services should be recommended and consulted. VESNA / ODRIS: [id number] / MTDD
[2017-07-21 14:51] VITALS: TEMP 97.5
--- NOTE | 2017-07-21 18:18 | PN ---
PROGRESS NOTE Date of Service: SUBJECTIVE: This is a 52-year-old white male with metastatic colon cancer. He has jaundice diffusely. He wants to be made DNR but does want possibly a PEG tube placed. Discussed with him and the doctor on the phone who is a radiation oncologist, Dr. Caballero's partner, who will come see the patient for oncology for palliative chemotherapy or radiation therapy ss he has metastatic lesions to the bone, for pain control. Prognosis is extremely guarded. Oncology and Radiation Oncology consults pending. MMODL / IJN: [id number] /
[2017-07-21 21:52] VITALS: BP 104/52
--- NOTE | 2017-07-21 23:17 | P.PN ---
Subjective Principal diagnosis: Metastatic colon cancer The patient remains quite weak with poor appetite. He is essentially bedbound. He has had some mild progression of abdominal distention but denies any nausea or vomiting at this time. He remains profoundly jaundiced. Objective - Vital Signs Vital signs: Vital Signs Temp 97.5 F L 07/21/17 21:52 Pulse 103 H 07/21/17 21:52 Resp 16 07/21/17 21:52 BP 104/52 07/21/17 21:52 Pulse Ox 97 07/21/17 21:52 Intake & Output 07/21/17 07/21/17 07/22/17 06:59 18:59 06:59 Intake Total 1300 800 Output Total 700 Balance 600 800 Weight 58.06 kg Intake: Intake, IV Titration 700 800 Amount Piperacillin-Tazobactam 3 50 .375 gm In Dextrose/Water 1 50ml.bag @ 12.5 mls/hr IVPB Q8HR [facility] Rx#: [id number] Sodium Chloride 0.9% 1, 650 800 000 ml @ 125 mls/hr IV . Q8H [facility] Rx#:[id number] Oral 600 Output: Urine 700 Other: Voiding Method Urinal Urinal # Voids 2 - Constitutional General appearance: Present: mild distress, thin - EENT Eyes: Present: scleral icterus ENT: Present: hearing grossly normal, normal oropharynx - Respiratory Respiratory: bilateral: diminished - Cardiovascular Rhythm: regular Heart sounds: normal: S1, S2 - Gastrointestinal General gastrointestinal: Present: decreased bowel sounds, distended Localized gastrointestinal: tender: RUQ - Integumentary Integumentary: Present: jaundiced - Neurologic Neurologic: Present: CNII-XII intact - Musculoskeletal Musculoskeletal: Present: generalized weakness - Psychiatric Psychiatric: Present: appropriate affect - Labs CBC & Chem 7: 07/21/17 05:40 07/21/17 05:40 Labs: Abnormal Lab Results - Last 24 Hours (Table) 07/21/17 07/21/17 07/21/17 Range/Units 05:40 05:40 05:40 WBC 12.4 H (3.8-10.6) k/uL RBC 2.84 L (4.30-5.90) m/uL Hgb 9.8 L (13.0-17.5) gm/dL Hct 31.0 L (39.0-53.0) % MCV 109.2 H (80.0-100.0) fL RDW 22.4 H (11.5-15.5) % Neutrophils # 10.8 H (1.3-7.7) k/uL Lymphocytes # 0.5 L (1.0-4.8) k/uL PT 17.0 H (9.0-12.0) sec INR 1.8 H (<1.2) APTT 39.8 H (22.0-30.0) sec Chloride 111 H (98-107) mmol/L Carbon Dioxide 13 L (22-30) mmol/L BUN 40 H (9-20) mg/dL Creatinine 2.80 H (0.66-1.25) mg/dL Calcium 8.2 L (8.4-10.2) mg/dL Total Bilirubin 21.4 H* (0.2-1.3) mg/dL AST 447 H (17-59) U/L ALT 104 H (21-72) U/L Alkaline Phosphatase 524 H (38-126) U/L Total Protein 5.9 L (6.3-8.2) g/dL Albumin 2.5 L (3.5-5.0) g/dL Assessment and Plan (1) Metastatic colon cancer to liver Narrative/Plan: I had a meeting with the patient that various family members today. It was confirmed, that the patient was told that he had metastatic colon cancer, at [facility] which also involved his lungs and bone. The patient does appears to have stage IV cancer , which is not curable. The objective of treatment would be palliation of symptoms and prolongation of life. However the patient is not a good candidate for systemic treatment, because of his very poor performance status as well as markedly elevated liver enzymes. In this situation, ideally, he would be treated with full dose, lesion chemotherapy and immunotherapy. However his performance status at this time is too poor to permit active treatment. The patient is essentially bedbound. In addition, the the significant liver dysfunction increases the risk of side effects from multiple chemotherapy therapeutic agents The patient himself is inclined for comfort care. At this time, it is difficult for me to recommend same, without having any records from [place]. These will be obtained and reviewed. I will then revisit with the patient. The patient is a no code, appropriately. Status: Acute (2) Jaundice Narrative/Plan: The patient has severe progressive jaundice. From the history, it appears that he had an ERCP though he is unaware if a stent was placed for not. It is not known, if the current jaundice is due to obstruction, or diffuse involvement of the liver with metastasis. An ultrasound will be ordered. If the hyperbilirubinemia appears to be obstructive, then it may be reversible with gastroenterology intervention. If due to diffuse liver involvement with the tumor, prognosis would be much worse. Status: Chronic
[2017-07-22] MEDS: PIPERACILLIN-TAZOBACTAM 3.375 GM in DEXTROSE/WATER 1 50ML.BAG IVPB SCH ×2 (00:22→08:44)
[2017-07-22] MEDS: PANTOPRAZOLE 40 MG/10 ML VIAL IV SCH ×2 (00:22→08:45)
[2017-07-22] MEDS: SODIUM CHLORIDE 0.9% 1,000 ML IV SCH ×2 (00:23→05:30)
[2017-07-22] MEDS: PHYTONADIONE ORAL 5 MG/5 ML ORAL.SYRG PO SCH ×2 (01:29→08:55)
[2017-07-22 05:30] LABS: Anisocytosis Moderate; Basophils # (A) 0.1 k/uL (0-0.2); Basophils % (A) 1 %; CH 33.7; Eosinophils # (A) 0.1 k/uL (0-0.7); Eosinophils % (A) 1 %; HCT 31.2 % (39.0-53.0); HDW 3.25; HGB 9.6 gm/dL (13.0-17.5); Hypochromasia Moderate; Luc % (Auto) 2; Lymphocytes # (A) 0.5 k/uL (1.0-4.8); Lymphocytes % (A) 4 %; MCHC 30.7 g/dL (31.0-37.0); MCV 110.7 fL (80.0-100.0); Mean Platelet Volume 8.3; Monocytes # (A) 0.6 k/uL (0-1.0); Monocytes % (A) 5 %; Neutrophils # (A) 11.2 k/uL (1.3-7.7); Neutrophils % (A) 88 %; RBC 2.82 m/uL (4.30-5.90); RDW 22.3 % (11.5-15.5); WBC 12.8 k/uL (3.8-10.6); WBC (Perox) 12.59
[2017-07-22 05:31] LABS: Macrocytosis Marked
[2017-07-22] MEDS: HYDROmorphone 1 MG/ML 1 ML SYRINGE IV PRN ×2 (05:34→08:44)
[2017-07-22 05:42] LABS: Partial Thromboplastin Time 40.9 sec (22.0-30.0)
[2017-07-22 05:50] LABS: Calcium 7.5 mg/dL (8.4-10.2); INR 1.6 (<1.2); Potassium 4.6 mmol/L (3.5-5.1); Prothrombin Time 15.9 sec (9.0-12.0); Total Protein 5.9 g/dL (6.3-8.2)
[2017-07-22] MEDS: LEVOTHYROXINE 100 MCG TAB PO SCH (06:05)
[2017-07-22] MEDS: LEVOTHYROXINE 75 MCG TAB PO SCH (06:05)
[2017-07-22 06:09] LABS: Total Bilirubin 21.9 mg/dL (0.2-1.3)
[2017-07-22 07:43] VITALS: PULSE 98
[2017-07-22] MEDS: DRONABINOL 2.5 MG CAP PO SCH (08:44)
[2017-07-22] MEDS: HYDROCORTISONE 1% CREAM 454 GM JAR TOPICAL SCH (08:46)
--- NOTE | 2017-07-22 10:26 | P.CONS ---
History of Present Illness - Reason for Consult Consult date: 07/22/17 Biliary obstruction Requesting physician: Severiano Salgado - History of Present Illness 52-year-old male with stage IV metastatic colon cancer to liver and lung and bone status post surgery [facility]. Presents with weakness jaundice. Consultation requested for biliary obstruction evaluation. Patient thinks he had an ERCP with biliary stent placed in the past. Liver ultrasound confirms biliary stent. Moderate degree of layering biliary sludge within the gallbladder lumen and a filling defect within the common bile duct just proximal to the stent surrounding the stent. Patient has been seen by general surgery and oncology. He is not a candidate for systemic chemotherapy at this time. Total bilirubin 21.9. AST 419. ALT 114. Alkaline phosphates 463. INR 1.6. Hemoglobin 9.6 platelet platelet 255. White count has fluctuated between 12-15. No reports of fevers. Resume his resting in bed profoundly weak with abdominal distention and generalized discomfort. Hospice has been suggested and possibly considered by patient. Review of Systems Constitutional: Denies fever, chills, sweats, weight gain, or loss. HEENT: Negative for migraines, blurred vision or loss, earaches, drainage, tinnitus, oral mucosal lesions, dysphagia, or odynophagia. Cardiac: Negative for chest pain, arrhythmias, or palpitation. Respiratory: Negative for shortness of breath, hemoptysis, cough, or sputum production. Gastrointestinal: See HPI for pertinent findings. Genitourinary: Negative for hematuria, urgency, frequency, polyuria, dysuria, or penile discharge. Musculoskeletal: Negative for muscle aches, swelling, arthritis, and arthralgias. Neurologic: Negative for stroke or TIA. Endocrine: Negative for thyroid problems. Skin: Negative for rash or itching. Psychiatric: Negative history for depression and anxiety All systems: negative (See HPI) Past Medical History Past Medical History: Cancer, Deep Vein Thrombosis (DVT), Pulmonary Embolus (PE) Additional Past Medical History / Comment(s): Adenocarcinoma colon with resection/colostomy and mets liver, lung and brain-diagnosed at [facility] October 2016, obstructive jaundice, hypothyroid, October 2016 PE and LE DVT, green field filter placed @ [facility] History of Any Multi-Drug Resistant Organisms: None Reported Past Surgical History: Bowel Resection Additional Past Surgical History / Comment(s): Bowel resection with colostomy, mediport. Past Anesthesia/Blood Transfusion Reactions: No Reported Reaction Past Psychological History: Depression Additional Psychological History / Comment(s): Pt has a brother who resides with him. He uses a walker to ambulate. He was discharged from [facility] 4 days ago and was to have home care established. Smoking Status: Never smoker Past Alcohol Use History: None Reported Past Drug Use History: Marijuana - Past Family History Father Family Medical History: CVA/TIA Additional Family Medical History / Comment(s): Father is living and has had a "mild stroke." Mother Family Medical History: Cancer Additional Family Medical History / Comment(s): Mother has had breast cancer. Medications and Allergies Home Medications Medication Instructions Recorded Confirmed Type Dronabinol [Marinol] 2.5 mg PO BID 07/19/17 07/19/17 History HYDROcodone/APAP 10-325MG [[place] 1 tab PO Q6H PRN 07/19/17 07/19/17 History 10-325] Levothyroxine Sodium [Synthroid] 175 mcg PO DAILY 07/19/17 07/19/17 History Multivitamins, Thera [Multivitamin 1 tab PO DAILY 07/19/17 07/19/17 History (formulary)] Phytonadione [Vitamin K] 5 mg PO BID 07/19/17 07/19/17 History fentaNYL 25MCG/HR PATCH [Duragesic 1 patch TRANSDERM Q72H 07/19/17 07/19/17 History 25MCG/HR] Allergies Allergy/AdvReac Type Severity Reaction Status Date / Time tigecycline Allergy Unknown Verified 07/19/17 09:52 Physical Exam Vitals: Vital Signs Temp Pulse Resp BP Pulse Ox 07/22/17 07:00 97.5 F L 98 92 L 07/22/17 00:00 103 H 16 07/21/17 21:52 97.5 F L 103 H 16 104/52 97 07/21/17 19:27 88 16 106/62 96 07/21/17 14:50 97.5 F L 98 16 102/53 96 Intake and Output 07/21/17 07/22/17 07/22/17 22:59 06:59 14:59 Intake Total 400 600 Output Total 250 900 Balance 150 -300 Intake: Intake, IV Titration 600 Amount Sodium Chloride 0.9% 1, 600 000 ml @ 125 mls/hr IV . Q8H [facility] Rx#:[id number] Oral 400 Output: Urine 250 650 Stool 250 Other: Voiding Method Urinal Urinal # Voids 2 2 General appearance: The patient is alert, weak. Jaundice. HET: Head is normocephalic and atraumatic. Pupils are equal and reactive. Sclerae icterus. Oropharynx is clear without lesions. Neck: Supple without lymphadenopathy. Trachea midline. Heart: S1 S2. Regular rate and rhythm. Lungs: No crackles or wheezes are heard. Diminished in bases bilaterally. Abdomen: Distended and tight with ascites prolapse ostomy pink minimal stool in bag. No peritoneal signs. No palpable organomegaly or masses. Extremities: =1 BLE edema. Pulses palpable +2. Neurological: No focal deficits. Strength and sensation are grossly intact. Results CBC & Chem 7: 07/22/17 05:15 07/22/17 05:15 Labs: Abnormal Lab Results - Last 24 Hours (Table) 07/22/17 07/22/17 07/22/17 Range/Units 05:15 05:15 05:15 WBC 12.8 H (3.8-10.6) k/uL RBC 2.82 L (4.30-5.90) m/uL Hgb 9.6 L (13.0-17.5) gm/dL Hct 31.2 L (39.0-53.0) % MCV 110.7 H (80.0-100.0) fL MCHC 30.7 L (31.0-37.0) g/dL RDW 22.3 H (11.5-15.5) % Neutrophils # 11.2 H (1.3-7.7) k/uL Lymphocytes # 0.5 L (1.0-4.8) k/uL PT 15.9 H (9.0-12.0) sec INR 1.6 H (<1.2) APTT 40.9 H (22.0-30.0) sec Chloride 113 H (98-107) mmol/L Carbon Dioxide 12 L (22-30) mmol/L BUN 50 H (9-20) mg/dL Creatinine 3.20 H (0.66-1.25) mg/dL Calcium 7.5 L (8.4-10.2) mg/dL Total Bilirubin 21.9 H* (0.2-1.3) mg/dL AST 479 H (17-59) U/L ALT 114 H (21-72) U/L Alkaline Phosphatase 463 H (38-126) U/L Total Protein 5.9 L (6.3-8.2) g/dL Albumin 2.4 L (3.5-5.0) g/dL Comments: Liver ultrasound reviewed by Dr. Winkler Assessment and Plan (1) Obstructive jaundice due to cancer Narrative/Plan: 52-year-old male with stage IV metastatic colon cancer to liver and lung and bone results with overall weakness and obstructive jaundice most likely mixed intrahepatic and extrahepatic secondary to underlying malignancy. Liver ultrasound reports biliary stent with debris within the common bile duct just proximal to stent possible tumor. No clinical evidence at this time to suggest acute cholangitis patient has remained afebrile. Status: Acute (2) Coagulopathy Status: Acute (3) Metastatic colon cancer to liver Status: Acute Plan: 1. Overall prognosis is poor. ERCP was discussed with patient. Proceeding with ERCP to assess if stent is occluded with sludge debris is possible however if tumor involvement is present patient will require PTC to alleviate biliary obstruction however keep in mind this will not change his overall prognosis. At this time patient is declining procedures and wants to remain comfortable. 2. Continue supportive measures. Thank you for this kind referral and the opportunity to participate in the care of your patient. This consultation was discussed with Dr. Winkler. The impression and plan of care have been directed as dictated.
--- NOTE | 2017-07-22 16:25 | PN ---
PROGRESS NOTE SUBJECTIVE: 52-year-old, white male requesting a PEG tube placed. At this time discussed with the surgeon on the phone. Home medications will be continued. Radiation Oncology saw the patient. Patient continue in the next 24-48 hours for PEG tube placement and nutrition will have to be reassessed and the patient will be discharged home in the near future with PEG tube feedings and outpatient treatment with immunotherapy versus chemotherapy. MMODL / IJN: [id number] /
--- NOTE | 2017-08-02 15:48 | PN ---
PROGRESS NOTE This is Odalis heller [facility] dictating progress note for Dr. Wolf Zambrano on Edin Guo, date of is 1965, . DATE OF SERVICE: 07/22/2017 Patient is a 52-year-old male, who is seen lying in bed. Family is at the bedside. The patient is significantly jaundice. He is afebrile, hemodynamically stable. Family is currently meeting with hospice nurse and patient will be opening up to inpatient hospice later today. PHYSICAL EXAM: Vital signs, temp 97.5, heart rate is 98, respiratory rate is 16, blood pressure 104/52, O2 saturation 92% on room air. HEENT. HEAD: Normocephalic, atraumatic. NECK: Supple. Trachea is midline. Lungs was decreased breath sounds. Heart is S1, S2 heard. Not tachycardic. ABDOMEN: abdomen is distended. Bowel sounds are heard. EXTREMITIES: With 3+ pitting edema bilaterally with jaundiced skin. Neurologic: Patient is awake, alert. LABS: White count 12.8, hemoglobin 9.6, hematocrit 31.2 with 255,000 platelets. PT 15.9, INR 1.6 PTT is 40.9, sodium is 140, potassium is 4.6, chloride 113, CO2 is 12, anion gap is 15, BUN is 50, creatinine 3.20, calcium 7.5, total bilirubin 21.9. AST 479 and ALT 114, alkaline phosphatase 463, total protein 5.9, albumin is 2.4. No new imaging to review. IMPRESSION: 1. Metastatic colon cancer with obstructive jaundice and liver metastatic disease. 2. Right-sided pleural effusion. 3. Hypoalbuminemia consistent with protein calorie malnutrition. 4. with bilirubin in the high 20s. 5. Metabolic acidosis. 6. Coagulopathy. PLAN: Agree with opening to hospice care and focusing on comfort measures only as patient's prognosis is extremely poor. We will sign off at this time and be available if needed. MMODL / IJN: [id number] /
== END 2017-07-22 12:34 | disposition hospice, inpatient (51) | DRG 435 ==
LOC: EC 09:13 → 5ONC 13:34
PROVIDERS: ADMIT Family Medicine; ATTEND Family Medicine
DX: C78.7 Secondary malignant neoplasm of liver and intrahepatic bile duct (principal); K83.1 Obstruction of bile duct; E43 Unspecified severe protein-calorie malnutrition; J90 Pleural effusion, not elsewhere classified; J18.9 Pneumonia, unspecified organism; D68.4 Acquired coagulation factor deficiency; C78.00 Secondary malignant neoplasm of unspecified lung; C79.31 Secondary malignant neoplasm of brain; K94.09 Other complications of colostomy; E87.2 Acidosis; C18.9 Malignant neoplasm of colon, unspecified; Z51.5 Encounter for palliative care; Z66 Do not resuscitate; E03.9 Hypothyroidism, unspecified; F32.9 Major depressive disorder, single episode, unspecified; K29.60 Other gastritis without bleeding; Z79.899 Other long term (current) drug therapy; Z90.49 Acquired absence of other specified parts of digestive tract; Z74.01 Bed confinement status; Z86.718 Personal history of other venous thrombosis and embolism; Z86.711 Personal history of pulmonary embolism; Z96.89 Presence of other specified functional implants; Z88.1 Allergy status to other antibiotic agents
CPT/HCPCS: 36415; 71020; 76604; 76705; 80053; 82550; 82553; 83735; 83880; 84484; 85025; 85610; 85730; 93005; 96361; 96374; 99285

== ENCOUNTER 2017-07-22 12:37 | Inpatient (IN) | payer MEDICAID ==
[2017-07-22] MEDS ORDERED: ACETAMINOPHEN SUPPOSITORY 650 MG SUPP RECTAL PRN (14:39)
[2017-07-22] MEDS ORDERED: BISACODYL 10 MG SUPP RECTAL PRN (14:40)
[2017-07-22] MEDS ORDERED: ONDANSETRON 4 MG/2 ML VIAL IVP PRN (14:40)
[2017-07-22] MEDS ORDERED: LORazepam 2 MG/ML SYRINGE IV PRN (14:42)
[2017-07-22] MEDS ORDERED: IPRATROPIUM-ALBUTEROL 3 ML NEB INHALATION PRN (14:43)
[2017-07-22] MEDS: MORPHINE SULFATE (100 MG/2 ML) 100 MG in SODIUM CHLORIDE 0.9% 100 ML IV SCH (15:49)
[2017-07-22 16:14] VITALS: RESP 18
[2017-07-23] MEDS: MORPHINE SULFATE (100 MG/2 ML) 100 MG in SODIUM CHLORIDE 0.9% 100 ML IV SCH (16:48)
--- NOTE | 2017-07-25 12:07 | DS ---
DISCHARGE SUMMARY I am covering for Dr. Severiano Salgado. PRIMARY CAUSE OF : 1. Metastatic colon cancer. 2. Obstructive jaundice. 3. Coagulopathy. HISTORY OF PRESENT ILLNESS: This 52-year-old gentleman who was admitted with acute onset of with metastatic colon cancer with multiple complex medical issues. The patient also had features of biliary obstruction. The patient was seen by Dr. Winkler. The case was discussed with the hematology/oncology as well as multiple consultations and it was decided to continue with hospice care. The patient was transferred to hospice and the patient subsequent to the above mentioned illness. Please refer to the multiple consultations and progress notes for any further details. MMODL / IJN: [id number] /
== END 2017-07-23 23:55 | disposition expired | DRG 374 ==
LOC: 5ONC 12:37
PROVIDERS: ADMIT Family Medicine; ATTEND Family Medicine
DX: C18.9 Malignant neoplasm of colon, unspecified (principal); K83.1 Obstruction of bile duct; C79.9 Secondary malignant neoplasm of unspecified site; D68.9 Coagulation defect, unspecified; Z51.5 Encounter for palliative care; Z66 Do not resuscitate; Z79.899 Other long term (current) drug therapy; Z88.1 Allergy status to other antibiotic agents